=== PATIENT | male | born 1945 | race Caucasian/White ===

== ENCOUNTER 2016-03-07 19:50 | Inpatient (IN) | payer MEDICARE, OTHER ==
[2016-03-07] VITALS (12 sets, daily range): BP systolic 130–196; BP diastolic 79–102
[~2016-03-07] VITALS: Ht 170.2 cm; Wt 86.7 kg
--- NOTE | ~2016-03-07 | CON ---
[place], [place] REPORT OF CONSULTATION NAME: JUAN RAMON CAUSEY UNIT #: [id number] ROOM: [facility] DOCTOR: MERVAT HELLER MD BIRTHDATE: [birth year] DOS: 03/08/2016 CARDIOLOGY CONSULTATION CONSULTING PHYSICIAN: Dr. Brito. REASON FOR CONSULT: Chest pain. I personally examined and assessed the patient today. His rhythm strips, labs and past medical history reviewed. This note is an addendum to the note dictated by residential physician, Dr. Sarwat Carrillo. His examination and assessment reflects my work. The patient complains of intermittent chest pain with a history of previous bypass and hypertension. PHYSICAL EXAMINATION: FOCUSED CARDIAC: Showed heart was regular rhythm, no S3, grade 1/6 systolic murmur. LUNGS: Clear to auscultation. EXTREMITIES: Showed no edema. DIAGNOSTIC IMPRESSION AND EKG: Showed sinus rhythm with lateral ST-T changes. IMPRESSION: 1. Chest pain, myocardial infarction ruled out. 2. Hypertension needs better control. 3. Coronary artery disease, status post bypass surgery. 4. Abnormal EKG with lateral ST-T changes. RECOMMENDATIONS: 1. Add lisinopril 5 mg for his blood pressure control and the side effects were discussed. 2. Give him amlodipine 10 mg one dose today for his blood pressure control. 3. Continue to watch his blood pressure and heart rates. 4. He will have a stress test today to rule out ischemia due to his chest pain and history of coronary artery disease. 5. Try to obtain his records from the [facility]. [place], [place] REPORT OF CONSULTATION NAME: JUAN RAMON CAUSEY UNIT #: [id number] ROOM: [facility] DOCTOR: MERVAT HELLER MD BIRTHDATE: [birth year] MERVAT HELLER MD CM:CONSTR:REPORT OF CONSULTATION 2325 04/12/16 0813 interface
--- NOTE | ~2016-03-07 | ST ---
[place], [place] EXERCISE STRESS TEST REPORT NAME: JUAN RAMON CAUSEY UNIT #: [id number] ROOM: [facility] DOCTOR: ARRON ROBERTSON,MERVAT BIRTHDATE: [birth year] DOS: 03/09/2016 LEXISCAN STRESS TEST REASON FOR TEST: Evaluation of chest pain. PHYSICAL EXAMINATION: NECK: Supple. LUNGS: Clear anteriorly. HEART: Regular rhythm. PROTOCOL: Lexiscan protocol. Maximum heart rate 110, peak blood pressure 154/84. SYMPTOMS: The patient is chest pain free. EKG: Resting EKG showed sinus rhythm with anteroseptal Q-waves. Stress EKG showed occasional PVCs, no ischemia. CONCLUSION: Clinically, the patient is chest pain free. EKG, no ischemia, compared to baseline. POST-STRESS COMPLICATIONS: None. The patient received total of 0.4 mg Lexiscan. MERVAT HELLER MD CM:STRESS:EXERCISE STRESS TEST REPORT [id number] MERVAT HELLER MD
--- NOTE | ~2016-03-07 | PR ---
[place], [place] PROGRESS NOTE NAME: JUAN RAMON CAUSEY UNIT #: [id number] ROOM: [facility] DOCTOR: MERVAT HELLER MD BIRTHDATE: [birth year] DOS: 03/09/2016 REASON FOR VISIT: Chest pain. SUBJECTIVE: The patient is feeling better. He had a few episodes of chest pain at rest, lasting for few minutes, but denies any shortness of breath. No palpitations, no dizziness. No PND or orthopnea. No edema. No nausea, vomiting, or diarrhea. REVIEW OF SYSTEMS: Review of the 8 systems negative except as mentioned above. RHYTHM STRIPS: The patient was in sinus rhythm. PHYSICAL EXAMINATION: VITAL SIGNS: Blood pressure 190/57, pulse 78, respiratory rate 16-18. GENERAL: Alert, comfortable, in no acute distress. HEENT: Pupils are round and equal. No jaundice. Tongue was moist and pharynx was clear. NECK: Supple, no distended neck veins, no carotid bruit. CHEST: Symmetrical, nontender. LUNGS: Clear to auscultation bilaterally. HEART: Regular rhythm, no S3, no palpable thrills. ABDOMEN: Benign, nontender. Bowel sounds normal. EXTREMITIES: Showed 1+ edema. Distal pulses are palpable. SKIN: Warm and dry. No cyanosis, no clubbing. DIAGNOSTIC TESTS: Rhythm strips and the labs reviewed. IMPRESSION: 1. Chest pain, myocardial infarction ruled out. 2. History of coronary artery bypass graft surgery in the [facility] in [place]. 3. Abnormal EKG with anteroseptal Q-waves. 4. Hypertension. RECOMMENDATIONS: 1. Continue current medications. The patient was scheduled for stress test today to rule out underlying ischemia. 2. Further recommendation based on his testing and his symptoms. [place], [place] PROGRESS NOTE NAME: JUAN RAMON CAUSEY UNIT #: [id number] ROOM: [facility] DOCTOR: MERVAT HELLER MD BIRTHDATE: [birth year] MERVAT HELLER MD CM:PNTRANS [id number] MERVAT HELLER MD 04/12/16 0811 interface
[~2016-03-07 19:50] MED LIST: ALLOPURINOL100 MG PO; ASPIRIN81 M1 PO; DIOVAN160 M2 PO; HYDR25T PO; LOPRESSOR100 M1 PO; PANTOPRAZOLE SO40 MG PO; PLAVIX75 M1 PO; POTASSIUM CHLO20 ME4 PO; PRAVASTATIN SOD10 MG PO; TOPAMAX50 MG PO
[2016-03-07] MEDS ORDERED: TOPAMAX100 M1 PO (20:03)
[2016-03-07] MEDS ORDERED: COREG3.125 MG PO (20:04)
[2016-03-07 20:37] LABS: BASO # 0.1 10*3/uL (0.0-0.1); BASO % 0.9 % (0.0-1.0); EOS # 0.4 10*3/uL (0.0-0.4); EOS % 5.9 % (1.0-4.0); HEMATOCRIT 44.5 % (42.0-52.0); HEMOGLOBIN 14.3 g/dl (14.0-18.0); LYMPH % 28.1 % (27.0-41.0); MEAN CORPUSCULAR HGB 26.7 pg (27.0-31.0); MEAN CORPUSCULAR HGB CONC 32.1 g/dl (33.0-37.0); MEAN PLATELET VOLUME 10.2 fl (9.6-12.3); MONO # 0.7 10*3/uL (0.1-1.0); NEUT # 3.8 10*3/uL (2.3-7.9); NEUT % 54.8 % (47.0-73.0); PLATELET COUNT AUTOMATED 238 10*3/uL (130-400); RED BLOOD COUNT 5.36 10*6/uL (4.50-5.90); RED CELL DISTRI WIDTH 14.2 % (0-14.5); WHITE BLOOD COUNT 6.9 10*3/uL (4.8-10.8)
[2016-03-07 20:53] LABS: ALBUMIN 3.7 gm/dl (3.1-4.5); ALKALINE PHOSPHATASE 76 U/L (45-117); BILIRUBIN, TOTAL 0.3 mg/dl (0.2-1.0); BUN 22 mg/dl (7-24); CARBON DIOXIDE 21 mmol/L (21-32); CHLORIDE 115 mmol/L (98-107); EST GLOM FILT AFRICAN AMERICAN > 60 ml/min; GLUCOSE 93 mg/dL (65-99); POTASSIUM 3.5 mmol/L (3.5-5.1); SGOT/AST 9 IU/L (3-35); SGPT/ALT 18 U/L (12-78); SODIUM 147 mmol/L (136-145); TOTAL PROTEIN 7.2 gm/dL (6.4-8.2); TROPONIN I 0.019 ng/ml (<0.5)
[2016-03-08] VITALS (12 sets, daily range): BP systolic 112–194; BP diastolic 73–118
[2016-03-08 00:37] LABS: CKMB 1.4 ng/ml (0.5-3.6); TROPONIN I 0.029 ng/ml (<0.5)
[2016-03-08 05:52] LABS: CKMB 1.4 ng/ml (0.5-3.6); TROPONIN I 0.026 ng/ml (<0.5)
[2016-03-08 05:55] LABS: BASO # 0.1 10*3/uL (0.0-0.1); BASO % 0.8 % (0.0-1.0); EOS # 0.4 10*3/uL (0.0-0.4); EOS % 5.6 % (1.0-4.0); HEMATOCRIT 41.3 % (42.0-52.0); HEMOGLOBIN 13.5 g/dl (14.0-18.0); LYMPH # 1.8 10*3/uL (1.3-4.4); LYMPH % 27.2 % (27.0-41.0); MEAN CELL VOLUME 81.9 fl (80.0-94.0); MEAN CORPUSCULAR HGB 26.8 pg (27.0-31.0); MEAN CORPUSCULAR HGB CONC 32.7 g/dl (33.0-37.0); MEAN PLATELET VOLUME 9.7 fl (9.6-12.3); MONO # 0.6 10*3/uL (0.1-1.0); MONO % 9.2 % (3.0-9.0); NEUT # 3.8 10*3/uL (2.3-7.9); NEUT % 56.9 % (47.0-73.0); PLATELET COUNT AUTOMATED 197 10*3/uL (130-400); RED BLOOD COUNT 5.04 10*6/uL (4.50-5.90); RED CELL DISTRI WIDTH 14.2 % (0-14.5); WHITE BLOOD COUNT 6.6 10*3/uL (4.8-10.8)
[2016-03-08 06:15] LABS: BUN 24 mg/dl (7-24); CARBON DIOXIDE 23 mmol/L (21-32); CHLORIDE 114 mmol/L (98-107); CHOLESTEROL 149 mg/dL (<200); EST GLOM FILT AFRICAN AMERICAN > 60 ml/min; FREE T4 0.96 ng/dl (0.76-1.46); GLUCOSE 86 mg/dL (65-99); HDL CHOLESTEROL 38 mg/dl (40-60); LDL CHOLESTEROL 91 mg/dL (9-159); MAGNESIUM 2.1 mg/dL (1.5-2.1); POTASSIUM 3.4 mmol/L (3.5-5.1); SODIUM 149 mmol/L (136-145); TRIGLYCERIDES 98 mg/dl (<150); VLDL CHOLESTEROL 20 mg/dL (6-40)
[2016-03-08 07:05] LABS: FOLIC ACID 8.16 ng/mL (>5.38)
[2016-03-08 12:16] LABS: CKMB 1.8 ng/ml (0.5-3.6); CPK 59 U/L (39-308)
[2016-03-08 12:26] LABS: TROPONIN I < 0.015 ng/ml (<0.5)
[2016-03-09] VITALS: BP 122/74
[2016-03-09 04:00] VITALS: BP 142/86
[2016-03-09 05:56] LABS: ALBUMIN 3.2 gm/dl (3.1-4.5); BILIRUBIN, TOTAL 0.5 mg/dl (0.2-1.0); MAGNESIUM 2.1 mg/dL (1.5-2.1); PHOSPHOROUS 1.8 mg/dL (2.5-4.9); POTASSIUM 3.6 mmol/L (3.5-5.1); TOTAL PROTEIN 6.3 gm/dL (6.4-8.2)
[2016-03-09 06:03] LABS: BASO # 0.1 10*3/uL (0.0-0.1); BASO % 0.6 % (0.0-1.0); EOS # 0.3 10*3/uL (0.0-0.4); EOS % 3.2 % (1.0-4.0); HEMOGLOBIN 14.8 g/dl (14.0-18.0); LYMPH # 1.4 10*3/uL (1.3-4.4); LYMPH % 13.5 % (27.0-41.0); MEAN CORPUSCULAR HGB 29.2 pg (27.0-31.0); MEAN CORPUSCULAR HGB CONC 34.4 g/dl (33.0-37.0); MEAN PLATELET VOLUME 10.7 fl (9.6-12.3); MONO % 9.6 % (3.0-9.0); NEUT # 7.5 10*3/uL (2.3-7.9); NEUT % 72.8 % (47.0-73.0); PLATELET COUNT AUTOMATED 235 10*3/uL (130-400); RED BLOOD COUNT 5.06 10*6/uL (4.50-5.90); RED CELL DISTRI WIDTH 14.3 % (0-14.5); WHITE BLOOD COUNT 10.4 10*3/uL (4.8-10.8)
[2016-03-09 08:00] VITALS: BP 96/57
[2016-03-09 14:59] VITALS: BP 148/80
[2016-03-09 16:00] VITALS: BP 126/77
[2016-03-09] MEDS ORDERED: LISINOPRIL5 MG PO (16:44)
== END 2016-03-09 17:48 | disposition home or self-care (01) | DRG 205 ==
LOC: ED 19:50 → EDHOLD 21:30 → ICCU 21:30 → EDHOLD 21:46 → 4E 21:57 → ICCU 22:39
PROVIDERS: Emergency Medicine Emergency Medical Services; Hospitalist; Internal Medicine
DX: M94.0 Chondrocostal junction syndrome [Tietze] (principal); N17.0 Acute kidney failure with tubular necrosis; E87.0 Hyperosmolality and hypernatremia; K21.9 Gastro-esophageal reflux disease without esophagitis; E78.5 Hyperlipidemia, unspecified; E87.6 Hypokalemia; I10 Essential (primary) hypertension; M10.9 Gout, unspecified; Z95.1 Presence of aortocoronary bypass graft; Z98.890 Other specified postprocedural states; I25.2 Old myocardial infarction; Z82.49 Family history of ischemic heart disease and other diseases of the circulatory system; Z88.1 Allergy status to other antibiotic agents; Z79.82 Long term (current) use of aspirin; Z79.899 Other long term (current) drug therapy

== ENCOUNTER 2016-05-12 01:24 | Inpatient (IN) | payer MEDICARE, OTHER ==
[2016-05-12] VITALS (8 sets, daily range): BP systolic 139–190; BP diastolic 77–109
[~2016-05-12] VITALS: Ht 170.2 cm; Wt 86.0 kg
[~2016-05-12 01:24] MED LIST changes: +COREG3.125 MG PO; +LISINOPRIL5 MG PO; +TOPAMAX100 M1 PO
[2016-05-12 01:43] LABS: BASO # 0.1 10*3/uL (0.0-0.1); BASO % 0.5 % (0.0-1.0); EOS # 0.4 10*3/uL (0.0-0.4); EOS % 3.2 % (1.0-4.0); HEMATOCRIT 49.3 % (42.0-52.0); HEMOGLOBIN 15.9 g/dl (14.0-18.0); LYMPH # 2.5 10*3/uL (1.3-4.4); LYMPH % 22.9 % (27.0-41.0); MEAN CELL VOLUME 80.7 fl (80.0-94.0); MEAN CORPUSCULAR HGB CONC 32.3 g/dl (33.0-37.0); MONO # 0.8 10*3/uL (0.1-1.0); MONO % 7.6 % (3.0-9.0); NEUT # 7.2 10*3/uL (2.3-7.9); NEUT % 65.5 % (47.0-73.0); PLATELET COUNT AUTOMATED 234 10*3/uL (130-400); RED BLOOD COUNT 6.11 10*6/uL (4.50-5.90); RED CELL DISTRI WIDTH 17.9 % (0-14.5); WHITE BLOOD COUNT 10.9 10*3/uL (4.8-10.8)
[2016-05-12 01:56] LABS: PROTHROMBIN TIME 10.8 SECONDS (9.0-12.4)
[2016-05-12 02:01] LABS: ALBUMIN 4.4 gm/dl (3.1-4.5); ALKALINE PHOSPHATASE 100 U/L (45-117); BILIRUBIN, TOTAL 0.4 mg/dl (0.2-1.0); BUN 19 mg/dl (7-24); CARBON DIOXIDE 24 mmol/L (21-32); CHLORIDE 110 mmol/L (98-107); CPK 133 U/L (39-308); EST GLOM FILT AFRICAN AMERICAN > 60 ml/min; GLUCOSE 84 mg/dL (65-99); MAGNESIUM 2.1 mg/dL (1.5-2.1); POTASSIUM 3.3 mmol/L (3.5-5.1); SGOT/AST 16 IU/L (3-35); SGPT/ALT 20 U/L (12-78); SODIUM 144 mmol/L (136-145); TOTAL PROTEIN 8.1 gm/dL (6.4-8.2)
[2016-05-12 02:02] LABS: CKMB 2.9 ng/ml (0.5-3.6)
[2016-05-12 02:03] LABS: TROPONIN I 0.069 ng/ml (<0.045)
[2016-05-12 03:22] LABS: BILIRUBIN NEGATIVE (NEGATIVE); BLOOD TRACE-LYSED (NEGATIVE); CLARITY CLEAR (CLEAR); COLOR YELLOW (YELLOW); GLUCOSE NEGATIVE (NEGATIVE); KETONE NEGATIVE (NEGATIVE); LEUKO ESTERASE NEGATIVE (NEGATIVE); NITRITE NEGATIVE (NEGATIVE); PH 5.5 (5.0-9.0); PROTEIN NEGATIVE (NEGATIVE); SPECIFIC GRAVITY <= 1.005 (1.005-1.030); UROBILINOGEN 0.2 E.U./dl (0.2-1.0)
[2016-05-12 03:28] LABS: BACTERIA TRACE; EPITHELIAL CELLS 0-2; URINE REFLEX COMMENT NO (NO); WBC 0-2 wbc/hpf (0-5)
[2016-05-12 06:28] LABS: BASO % 0.5 % (0.0-1.0); EOS # 0.3 10*3/uL (0.0-0.4); EOS % 4.4 % (1.0-4.0); HEMATOCRIT 45.1 % (42.0-52.0); HEMOGLOBIN 14.5 g/dl (14.0-18.0); LYMPH # 1.8 10*3/uL (1.3-4.4); LYMPH % 25.2 % (27.0-41.0); MEAN CELL VOLUME 80.4 fl (80.0-94.0); MEAN CORPUSCULAR HGB 25.8 pg (27.0-31.0); MEAN CORPUSCULAR HGB CONC 32.2 g/dl (33.0-37.0); MEAN PLATELET VOLUME 9.9 fl (9.6-12.3); MONO # 0.6 10*3/uL (0.1-1.0); MONO % 8.4 % (3.0-9.0); NEUT # 4.5 10*3/uL (2.3-7.9); NEUT % 61.2 % (47.0-73.0); PLATELET COUNT AUTOMATED 196 10*3/uL (130-400); RED BLOOD COUNT 5.61 10*6/uL (4.50-5.90); RED CELL DISTRI WIDTH 16.8 % (0-14.5); WHITE BLOOD COUNT 7.3 10*3/uL (4.8-10.8)
[2016-05-12 06:43] LABS: CKMB 2.5 ng/ml (0.5-3.6)
[2016-05-12 06:47] LABS: HEMOGLOBIN A1c 5.4 % (4.8-5.6)
[2016-05-12 06:50] LABS: TROPONIN I 0.069 ng/ml (<0.045)
[2016-05-12 07:03] LABS: INTERNATIONAL NORM RATIO 1.1 (2.0-3.5); PROTHROMBIN TIME 11.2 SECONDS (9.0-12.4)
[2016-05-12 07:04] LABS: CHLORIDE 114 mmol/L (98-107); POTASSIUM 3.7 mmol/L (3.5-5.1); SODIUM 146 mmol/L (136-145)
[2016-05-12 07:25] LABS: ALBUMIN 3.6 gm/dl (3.1-4.5); ALKALINE PHOSPHATASE 83 U/L (45-117); BILIRUBIN, TOTAL 0.6 mg/dl (0.2-1.0); BUN 18 mg/dl (7-24); CARBON DIOXIDE 22 mmol/L (21-32); CHOLESTEROL 161 mg/dL (<200); EST GLOM FILT AFRICAN AMERICAN > 60 ml/min; FREE T4 1.05 ng/dl (0.76-1.46); GLUCOSE 83 mg/dL (65-99); HDL CHOLESTEROL 39 mg/dl (40-60); LDL CHOLESTEROL 109 mg/dL (9-159); MAGNESIUM 2.2 mg/dL (1.5-2.1); PHOSPHOROUS 3.5 mg/dL (2.5-4.9); SGOT/AST 11 IU/L (3-35); SGPT/ALT 16 U/L (12-78); TRIGLYCERIDES 67 mg/dl (<150); VLDL CHOLESTEROL 13 mg/dL (6-40)
[2016-05-12] MEDS ORDERED: PRINIVIL20 M1 PO (11:20)
[2016-05-12 12:16] LABS: CKMB 2.9 ng/ml (0.5-3.6)
[2016-05-12 12:19] LABS: TROPONIN I 0.047 ng/ml (<0.045)
== END 2016-05-12 14:36 | disposition home or self-care (01) | DRG 305 ==
LOC: ED 01:24 → 4E 03:00 → EDHOLD 03:00 → 4E 03:22
PROVIDERS: Emergency Medicine Emergency Medical Services; Hospitalist
DX: I16.1 Hypertensive emergency (principal); E78.5 Hyperlipidemia, unspecified; E87.6 Hypokalemia; M1A.9XX0 Chronic gout, unspecified, without tophus (tophi); K21.9 Gastro-esophageal reflux disease without esophagitis; I25.2 Old myocardial infarction; Z95.1 Presence of aortocoronary bypass graft; Z88.1 Allergy status to other antibiotic agents; Z82.3 Family history of stroke; Z82.49 Family history of ischemic heart disease and other diseases of the circulatory system; Z84.89 Family history of other specified conditions; Z79.82 Long term (current) use of aspirin; Z79.899 Other long term (current) drug therapy